=== PATIENT | female | born 1965 ===

== ENCOUNTER 2024-07-02 09:19 | Outpatient (CLI) | payer OTHER, SELFPAY ==
[2024-07-02 09:29] LABS: Appearance Urine Clear (Clear); Bilirubin Urine Negative (Negative); Blood Urine Trace-intact (Negative); Color Urine Yellow (Yellow); Glucose Urine Negative (Negative); Ketones Urine Negative (Negative); Leukocyte Esterase Urine Negative (Negative); Nitrite Urine Negative (Negative); Protein Urine Negative (Negative); Specific Gravity Urine 1.015 (1.000-1.030); Urobilinogen Urine 0.2 (0.2-1.0); pH Urine 6.5 (5.0-8.5)
[2024-07-02 09:36] LABS: Bacteria Urine Few; RBC Urine 0-2 (0-2); WBC Urine 0-2 (0-5)
[2024-07-03 17:21] LABS: HPV Source Cervical; HPV, High Risk by TMA Not Detected
== END 2024-07-02 09:20 | disposition home or self-care (01) ==
PROVIDERS: Visit Provider Obstetrics & Gynecology
DX: N81.2 Incomplete uterovaginal prolapse (principal); Z12.4 Encounter for screening for malignant neoplasm of cervix
CPT/HCPCS: 81001; 81003; 87086; 87624; 87625; 88141; 88142

== ENCOUNTER 2024-07-13 20:01 | Inpatient (IN) | payer OTHER, SELFPAY ==
[2024-07-13] VITALS (17 sets, daily range): BP systolic 99–143; BP diastolic 59–76; PULSE 60–77; RESP 14–16; TEMP 36.5–37.3; O2SAT 88–99; BMI 30.2
[2024-07-13] MEDS: LACTATED RINGERS 1000 ML 1,000 ML 100 ML IV (11:40)
[2024-07-13] MEDS: SODIUM CHLORIDE 0.9 % (FLUSH) 10 ML SYRINGE IVF (12:01)
[2024-07-13 12:11] LABS: Hemoglobin* 13.7 gm/dL (12.0-16.0)
[2024-07-13 12:21] LABS: Creatinine* 0.7 mg/dL (0.5-1.5); Est. Creatinine Clearance* 46.73; Estimated Glomerular Filt Rate 98 ml/min
--- NOTE | 2024-07-13 12:33 | W.PM.H&PU ---
History & Physical Update History & Physical Update H&P Reviewed and patient assessed: No changes noted
[2024-07-13] MEDS: CEFAZOLIN 2 GM INJ IVP (13:30)
[2024-07-13] MEDS: LACTATED RINGERS 500 ML 500 ML 125 ML IV ×2 (14:09→18:00)
[2024-07-13] MEDS: FLUORESCEIN 10% INJ 500 MG IVP (16:25)
--- NOTE | 2024-07-13 17:01 | P.GSOP_ITS ---
Operative Note Date of procedure: 07/13/24 Pre-op diagnosis: Uterovaginal prolapse Post-op diagnosis: Same Type of Procedure: Laparoscopic hysterectomy converted to abdominal hysterectomy Indications: I was asked for an intraoperative consultation by gynecology, please see Dr. Rodriguez's note for full risks and benefits discussion as well as indications for the procedure. Procedure Description: Dr. Rodriguez requested an intraoperative consultation by General surgery for extensive adhesions of the rectum to the uterus. When I came into the operating room the patient was in lithotomy position. The procedure had already been converted to an open total abdominal hysterectomy. The uterus was cir cumferentially dissected free and being retracted by Dr. Abreu. The posterior cul-de-sac was dissected through a layer of the uterine wall. The rectosigmoid colon was densely adherent to tissue just inferior to this dissection, along a lining of the uterus obliterating the posterior cul-de-sac space. I carefully dissected away the adhesions with cautery and sharp dissection when close to the colon. The underlying colon was then examined with no evidence of injury. This allowed for enough mobility of the uterus and cervix so that Dr. Nolasco could complete removal of the uterus and closure of the vaginal cuff. The lateral abdominal wall had been previously dissected and was examined closely. The left ureter was identified and away from the operative field. The abdominal wall dissection was partially into the mesentery of the colon. No evidence of mesenteric defects and perfusion to the sigmoid colon was excellent. I assisted with dissection of the left ovary away from the underlying ureter. Dr. Rodriguez then partially transected the ovary and passed off the back table to be sent for pathology. The abdomen was gently irrigated with warm saline. Hemostasis was excellent. I then left the operating room to loud Dr. Nolasco to continue with the procedure. Findings: Adhesions of rectus sigmoid colon to posterior uterus. Anesthesia: GETA Surgeon: Yancy Rene MD Estimated blood loss (mL): 0 Condition: stable Disposition: PACU
[2024-07-13] MEDS: CEFAZOLIN 1 GM inj IVP (17:29)
[2024-07-13] MEDS: VASOPRESSIN 20 UNIT/ML INJ INJECTION (18:00)
[2024-07-13] MEDS: 0.9 % SODIUM CHLORIDE 50 ml INJECTION (18:00)
--- NOTE | 2024-07-13 18:13 | CRLHL7_ITS ---
For Patients: As a result of the Century Cures Act, medical imaging exams and procedure reports are released immediately into your electronic medical record. You may view this report before your referring provider. If you have questions, please contact your health care provider. Indication: CHECKING FOR RIGHT URETER PATENCY POST Hysterectomy AND STENT REMOVAL ON RT SIDE Technique: IVP KUB study ISOVUE 370 81CC intravenous contrast 6 MIN POST, 10 MINUTE POST, 15 MIN POST, 20 MIN POST IMPRESSION: Normal opacification of the renal collecting systems bilaterally with normal opacification of the ureters and visualized bladder. Normal patency of the right ureter. Dictated by Joseph Solorio MD @ 07/16/2024 3:56:32 PM (Electronically Signed)
[2024-07-13] MEDS: KETOROLAC 15 MG/ML inj IVP (18:40)
--- NOTE | 2024-07-13 18:45 | W.PM.GYNPROC ---
Procedure Note Time Seen by Provider: 18:20 Date of procedure: 07/13/24 Will [facility] bill your pro fee for this procedure?: Yes Pre-op diagnosis: Absent efflux of the right ureteral jet Procedure: Diagnostic cystoscopy, right ureteral stent placement and removal Anesthesia: GETA Complications: None Surgeon: Renny Mora MD Estimated blood loss (mL): 0 IV fluids (mL): 0 Urine Output (mL): 0 Pathology: none sent Condition: stable Disposition: floor Findings: Absent right ureteral jet efflux Right ureteral stent placed to 20cm depth without difficulty Procedure Description: I was consulted intraoperatively by Dr. Edwina Rodriguez at 1724 requesting placement of right ureteral stent in the absence of spontaneous right ureteral efflux on diagnostic cystoscopy. Patient was undergoing a total abdominal hysterectomy, bilateral salpingectomy right oophorectomy in the setting of pelvic organ prolapse which had to be converted from a TVH to a DIONTE in the setting of intra-abdominal adhesive disease. Dr. Rodriguez noted transperitoneal and retroperitoneal identification of the right ureter was challenging intraoperatively. She completed a diagnostic cystoscopy after vaginal cuff closure, where the left ureteral orifice was noting to freely and spontaneously passed a robust of urine. Despite approximately 20 minutes of observation, the right ureter failed to demonstrate spontaneous efflux of urine. Cystoscopy did suggest there was peristalsis ongoing. When I arrived in the operating room, the patient was already in the synchronous position with Yellofin stirrups and prepped and draped in the usual fashion. She was under general anesthesia. Dr. Rodriguez was completing a diagnostic cystoscopy. The right ureteral orifice was visualized and inspected, where ureteral efflux was absent. A 0.35mm straight tip, flexible ureteral guidewire inserted through the operative channel of the cystoscope. This was easily introduced into the right ureteral orifice and advanced without difficulty until slight resistance was appreciated at the ureteropelvic junction. Flexible ureteral stent was guided gently over the wire and inserted to 20 cm in depth. Guide wire was removed. Ureteral stent was stabilized and cystoscope removed, right ureteral stent was held in place by photographer's assistant. The smith catheter was reinserted. The stent was then secured to the smith catheter and patient's leg. Intraabdominal assessment by Drs. Rodriguez and Josh ensued. Their impression was that the right ureter was free of the area of surgical dissection, the vaginal cuff and all pedicles. During their assessment, very minimal flow of urine was noted via the external right ureteral stent. After they were satisfied that the ureter was clear, the external right ureteral catheter was removed. Care was turned over to Dr. Rodriguez, who intends to proceed with IV Pyelogram further assess function of the right kidney and for ureteral injury. Please see her documentation for complete details. My component of the procedure was well tolerated and with no apparent complications.
--- NOTE | 2024-07-13 18:51 | P.GYNPRC_ITS ---
Procedure Note Date of procedure: 07/13/24 Will [facility] bill your pro fee for this procedure?: Yes Pre-op diagnosis: Stage IV uterovaginal prolapse Post-op diagnosis: Extensive pelvic adhesions with obliteration of posterior cul-de-sac and left ovarian fossa Otherwise as above Procedure: Total abdominal hysterectomy with partial left oophorectomy Extensive lysis of adhesions Cystoscopy with placement of right ureteral stent Anesthesia: GETA, spinal and other (TAP block) Complications: Extensive adhesions and obliteration of the cul-de-sac, requiring conversion from vaginal to abdominal hysterectomy and inability to complete suspension procedure of the vagina Surgeon: Edwina Rodriguez MD Intraoperative consult: Yancy Rene MD, general surgery, for assistance with lysis of adhesions Daisy Mora MD, for assistance with placement of right ureteral stent Mailing Machine Assistant: Janeth Moreno Estimated blood loss (mL): 200 IV fluids (mL): 2,200 Urine Output (mL): 700 (greater than 700 cc; this amount was measured prior to cystoscopy) Pathology: specimen obtained, sent to pathology (Uterus, portions of left ovary) Condition: stable Disposition: floor Findings: 1. On initial pelvic exam under anesthesia, uterine procidentia was noted. The uterus was of normal size. There are no palpable adnexal masses. 2. I was unable to perform the posterior colpotomy. Upon entry into the peritoneal cavity with anterior colpotomy, obliteration of the posterior cul-de-sac was noted. 3. Upon laparotomy, the right tube and ovary were surgically absent. The left ovary was densely scarred to the left pelvic sidewall and directly overlying the left ureter. The cul-de-sac was obliterated, with scarring of the sigmoid and rectum to the posterior uterus and the pelvic sidewalls. 4. Upon cystoscopy, the bladder was capacious but was intact. Vigorous left ureteral jets were noted. Right ureter did not demonstrate jets for the duration of the cystoscopy. 5. After placement of a right ureteral stent to 20 cm, the stent was palpable from the pelvic brim to the bladder, without any injury, kinking, or disruption noted on intraperitoneal exam. 6. Intravenous pyelogram, performed after the procedure but within operating room, did show right ureteral patency to the right bladder per my read; final read is pending. Procedure Description: Patient was taken to the operating room with IV running. She received IV cefazolin in preoperative prophylaxis. She was prepped and draped in the usual sterile fashion in the dorsal lithotomy position. Her legs were fully supported with Yellofin stirrups. A spinal anesthesia was initially used. Exam under anesthesia revealed the above-noted findings. Morrison catheter was placed. The cervix was grasped along its anterior and posterior lip with thyroid Saturnino clamps. The cervical vaginal junction was incised circumferentially with a scalpel. The initial attempt to complete the anterior colpotomy was unsuccessful. Posterior colpotomy was then attempted with scissors, but the peritoneal cavity was never entered, and further attempts seem to be delving into the body of the uterus itself. Thereafter, the anterior colpotomy was successfully completed without complication. Anterior peritoneal examination through this colpotomy revealed obliteration of the cul-de-sac. Decision was made to proceed with total abdominal hysterectomy. The posterior vaginal cuff was oversewn with a running stitch of 0 Vicryl for later identification. The abdomen was then cleansed and draped. A Pfannenstiel skin incision was made with a scalpel and carried down to the underlying layer of fascia with Bovie. The fascia was nicked in the midline with a scalpel and this incision was extended laterally with scissors. The fascia was dissected off the underlying rectus muscles sharply. The peritoneal cavity was entered bluntly. This opening was extended laterally with Bovie. The large Aime O retractor was inserted and tightened down, providing good visualization of the pelvis. The bowels were packed into the upper abdomen with a dampened laparotomy pack. The bilateral round ligaments were clamped, cut, and suture ligated with 0 Vicryl, and tagged for later identification. The cornua of the uterus was grasped bilaterally with clamps. The bladder reflection was dissected down to the level of the colpotomy bilaterally. On the patient's left side, the remnants of the scarred left broad ligament were dissected away from the pelvic sidewall. Some filmy adhesions of the sigmoid colon were dissected away from the pelvic sidewall, allowing greater mobilization. The retroperitoneum was opened in this fashion, and the infundibulopelvic ligament was skeletonized. The left ureter was identified beneath this pedicle. The infundibulopelvic ligament was then crossclamped, cut, and suture ligated. The proximal most portions of the ovary were still imbedded in dense scar tissue on the pelvic sidewall. Ultimately, the utero- ovarian ligament on this side was dissected away from scar tissue, crossclamped, cut and suture ligated. The remaining right broad ligament was opened posteriorly and the right uterine arteries were skeletonized. The right ovary was surgically absent. There was scar attaching the right cornua to the right pelvic sidewall that was crossclamped and suture ligated. The retroperitoneum was opened from the broad ligament. The right ureter was not initially visualized with the retroperitoneal dissection on this side. The adhesions of the sigmoid colon to the posterior uterus were painstakingly dissected. Dr. Yancy Rene was then called to the operating room for assistance, and she was able to complete this dissection to the level of the posterior cervix. Please refer to her operative note for full detail. This dissection did reveals some disruption of the posterior uterus and upper posterior vaginal fibromuscularis from previous attempts at the posterior colpotomy. The uterine arteries were coagulated and transected with the LigaSure Impact device. The anterior cervix was then grasped through the anterior colpotomy, and this was used as a guide to complete the colpotomy using the LigaSure Impact device. The uterus and cervix were then sent to pathology as a specimen. The vaginal edges were grasped with Allis clamps. The vaginal cuff was closed with a series of interrupted sutures of 0 Vicryl. Hemostasis was achieved with Bovie electrocautery. The disrupted posterior vaginal fibromuscularis was also oversewn with sutures of 0 Vicryl, attaching these to the posterior cuff. The left ureter was again identified. The left ovary was grasped above this. Portions of the ovary were removed in a piecemeal fashion, always identifying the ureter and painstakingly dissecting areas above this left ureter to sent to pathology. Some remaining ovarian tissue was left due to its proximity to the ureter and dense adhesions to this area. The pelvis was copiously irrigated and cleared of all clot and debris. Hemostasis was noted. The Aime O retractor was removed, as was the bowel pack. The laparotomy incision was covered with a sterile towel. Attention was turned to the cystoscopy. Patient had been given sodium fluorescein to aid in identification of ureteral jets. Patient's legs were placed back in lithotomy position. The catheter was removed. Cystoscope was advanced through the urethra into the bladder. Survey of the bladder revealed a capacious bladder with no injury to the mucosa. The left ureter was quite active, but the right ureter exhibited only 3 peristaltic movements during the course of more than 10 minutes without any ureteral jet. Given this, the decision was made to pass a right ureteral stent. Dr. Pierre was consulted for this portion of the procedure. Please refer to her operative note for full detail. In summary, ureteral stent was successfully passed to 20 cm depth. The laparotomy was again addressed. The Aime O retractor was replaced and bowel pack was again placed. Through the laparotomy, examination of the entire length of the ureteral stent was done, showing no kinking or injury to the ureter. Ureteral stents were removed and Morrison catheter was replaced. The pelvis was again copiously irrigated. Scotty hemostatic agent was placed on the vaginal cuff. Packing was removed, as was the retractor. The abdominal wall muscles were examined and Bovie used for hemostasis. The fascia was closed with this running suture of 0 Vicryl. Subcutaneous fat was irrigated and Bovie used on bleeding vessels. This skin was closed with a subcuticular stitch of 4- 0 Monocryl. Steri-Strips were applied above this, and then a dressing. Vaginal exam after the hysterectomy revealed excellent support of the vaginal cuff. The anterior vaginal wall was entirely normal in appearance, with normal rugae and vaginal sulci. A rectocele had not been noted prior to the procedure. There was negligible bulge at the end of the procedure, possibly related to the dissection in the rectovaginal septum. IVP was performed prior to patient leaving the operating room, with reassuring findings as described above.
--- NOTE | 2024-07-13 19:47 | W.ANESCHARGE ---
Anesthesia Charges Start Date/Time Anesthesia Start Date: 07/13/24 Anesthesia Start Time: 12:52 Stop Date/Time Anesthesia Stop Date: 07/13/24 Anesthesia Stop Time: 19:44 Coding CPT Codes CPT Codes: ANESTH SURG LOWER ABDOMEN - 21957 ([id number]) P2 - PATIENT W/MILD SYST DISEASE
[2024-07-13] MEDS: fentaNYL 100 MCG/2 ML inj 50 MCG IVP ×2 (19:55→20:10)
--- NOTE | 2024-07-13 19:57 | P.ANES_ITS ---
Anesthesia Charges Start Date/Time Anesthesia Start Date: 07/13/24 Anesthesia Start Time: 12:52 Stop Date/Time Anesthesia Stop Date: 07/13/24 Anesthesia Stop Time: 19:44 Coding CPT Codes CPT Codes: ANESTH SURG LOWER ABDOMEN - 44100 ([id number]) P2 - PATIENT W/MILD SYST DISEASE, QK - CERTIFIED TOWER CLIMBER 2-4 CNCRNT ANES PROC, QX - CONDITIONING COACH SVC W/ MD MED DIRECTION
--- NOTE | 2024-07-13 19:57 | W.ANESCHARGE ---
Anesthesia Charges Start Date/Time Anesthesia Start Date: 07/13/24 Anesthesia Start Time: 12:52 Stop Date/Time Anesthesia Stop Date: 07/13/24 Anesthesia Stop Time: 19:44 Coding CPT Codes CPT Codes: ANESTH SURG LOWER ABDOMEN - 07444 ([id number]) P2 - PATIENT W/MILD SYST DISEASE, QK - CULTURAL HISTORIAN 2-4 CNCRNT ANES PROC, QX - MARINE PIPEFITTER HELPER SVC W/ MD MED DIRECTION
--- NOTE | 2024-07-13 19:58 | P.NB_ITS ---
Nerve Block Nerve Block Time Seen by Provider: 19:15 Date Seen: 07/13/24 Type of block requested by surgeon for post-operative analgesia: TAP Side: bilateral Time out performed: Yes Verification of patient name: Yes Verification of date of : Yes Site marking: site marked Name of person performing procedure: Tarsha Lima Continuous monitoring Was continuous monitoring of O2 sat, B/P, environmental monitoring technician, recorded every 15 minutes?: Yes Procedure Checklist: sterile prep, needles and gloves Ultrasound guided. Images saved: Yes Medications given in 5ml increments after negative aspiration: Marcaine %: 0.25 mL: 30 Needle gauge: 20 and Exparel mL: 10 Needle gauge: 20 Patient tolerated procedure well: Yes Block Charges Block Charge (with Pro Fee): TAP Bilateral Use of Ultrasound Machine for Block: Yes- US Guidance/pain block
[2024-07-13] MEDS: MORPHINE 2 MG/ML inj IVP ×2 (20:48→21:45)
[2024-07-13] MEDS: ONDANSETRON 2 MG/ML inj 4 MG IVP (22:53)
[2024-07-14] VITALS (8 sets, daily range): BP systolic 105–147; BP diastolic 61–76; PULSE 73–95; RESP 14–19; TEMP 36.9–37.7; O2SAT 91–97
[2024-07-14] MEDS: KETOROLAC 30 MG/ML inj IVP ×4 (01:45→20:19)
[2024-07-14] MEDS: PROMETHAZINE 25 MG/ML INJ 12.5 MG IV (01:57)
[2024-07-14] MEDS: MORPHINE 2 MG/ML inj IVP (01:58)
[2024-07-14] MEDS: LACTATED RINGERS 1000 ML 1,000 ML 40 ML IV (02:02)
--- NOTE | 2024-07-14 06:29 | PC.NURSE ---
Arrived to the floor at 2030. A&O but drowsy. Upon initial assessment pt rating pain 6/10 and reporting significant discomfort. See eMAR for interventions. VSS on 1 L NC. Initially pt reporting increased pain after pain med administration. MD updated. See new orders. Pain managed overnight w/ IV morphine and scheduled toradol. Overnight pt reporting intermittent nausea. See eMAR for interventions. No emesis. Taking sips of water. Crackers and jello at bedside but pt not up for food at this time. Dressing to abdomen c/d/i. BS hypoactive. Minimal vaginal bleeding. Morrison in place and draining orange colored urine. Daughter at bedside overnight.
[2024-07-14 06:59] LABS: Hemoglobin* 12.2 gm/dL (12.0-16.0)
[2024-07-14 07:15] LABS: Creatinine* 0.7 mg/dL (0.5-1.5); Est. Creatinine Clearance* 46.73; Estimated Glomerular Filt Rate 98 ml/min
--- NOTE | 2024-07-14 08:17 | PM.GYNPNPO ---
VIDEO AND SOUND RECORDER - A/P Assessment and plan (1) S/P total abdominal hysterectomy: Problem details: With partial left oophorectomy, extensive lysis of adhesions, cystoscopy and placement and removal of right ureteral stent on 07/13/24 Status: Acute Assessment and Plan: Appropriate postoperative course. Discontinue IV fluids that she is tolerating orals quite well. Voiding trial today. Ambulation today. She has not had a bowel movement for few days. Colace twice daily is ordered, and I asked that she try milk of magnesia today. She has previously tried MiraLax and be cycle suppositories without success. If this fails, I will try a stimulant laxative. Plan We discussed postoperative restrictions and precautions at length. We discussed reasons to call the clinic or come to the ER after discharge. I anticipate that she will be discharged tomorrow. Postoperative Procedures: Procedures Operation Date: 07/13/24 12:45 Actual Procedure Side Surgeon p M/S-Total ABDOMINAL Hysterectomy, LEFT Oophorectomy, Cystoscopy, PLACEMENT AND REMOVAL OF RIGHT URETERAL STENT. Not Applicable Edwina Rodriguez MD Postoperative day: 1 Postoperative status: doing well Postoperative plan: routine post-op care Time Spent With Patient Time: Total time spent is greater than 50% in coordination of care (as documented) at patient's floor/unit and/or counseling patient: Time with patient: 25 - 35 minutes VIDEO AND SOUND RECORDER- PN:Subj Post-Op Subjective Date Seen: 07/14/24 Post Operative Details: Post-operative day number 1 s/p total abdominal hysterectomy with partial left oophorectomy, extensive lysis of adhesions, cystoscopy with placement of right ureteral stent. Original indication for surgery was uterine procidentia. She reports pain controlled on Toradol alone at this point; she has not taken narcotics recently. She just had a regular breakfast and tolerated it well. She has not yet passed flatus. She denies any chest pain or shortness of breath. She has not yet been walking. Morrison catheter still in place. VIDEO AND SOUND RECORDER-PN: Obj Exam Physical Exam: Vital signs: Temp Pulse Resp BP Pulse Ox O2 Del Method O2 Flow Rate 98.4 F 74 16 117/62 97 Nasal Cannula 1 07/14/24 02:00 07/14/24 03:00 07/14/24 03:00 07/14/24 03:00 07/14/24 03:00 07/14/24 03:00 07/14/24 03:00 Narrative: General: Pleasant, no acute distress Heart: Regular rate and rhythm, no murmur or gallop Lungs: Slight crackles in left lung base, otherwise Clear to auscultation bilaterally Abdomen: Normoactive bowel sounds in all 4 quadrants, Soft, nontender, no distension, rebound, or guarding. Dressing clean, dry, and intact Lower extremities: No edema or erythema Urinary Catheter Management: Urethral: Cath placed during this visit: no VIDEO AND SOUND RECORDER - PN: Obj Data Labs Labs: Laboratory Results - last 24 hr 07/13/24 07/14/24 12:00 06:24 Hgb 13.7 12.2 Creatinine 0.7 0.7 Estimated Creat Clear 46.73 46.73 Estimated GFR 98 98 Blood Type AB Positive Antibody Screen NEGATIVE
--- NOTE | 2024-07-14 09:44 | PM.GYNDS1 ---
Documented by User: Edwina Rodriguez MD 07/16/24 20:50 DS: Providers Provider Date Seen: 07/15/24 Date of admission: 07/13/24 20:01 Primary care physician: Tarsha Tang PA-C Admitting Clinician: Edwina Rodriguez MD Consults: Intraoperative consult from Dr. Yancy Rene and Dr. 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 Indication for surgery: Uterine procidentia. Intraoperative findings were notable for obliterated cul-de-sac, requiring conversion to total abdominal hysterectomy and inability to complete uterosacral suspension. Extensive pelvic adhesions, requiring extensive lysis of adhesions. Only partial removal of left ovary due to dense adhesions and proximity to left ureter. Cystoscopy did not initially demonstrate right ureteral jet, but ureteral stenting was accomplished without difficulty and no injury to the ureter was noted intraoperatively or on immediate postoperative IVP. Postoperative course has been uneventful. Vitals have been stable. She has remained afebrile. Today, on postoperative day [], she reports the pain is well controlled. She has been able to ambulate Without difficulty. She is tolerating regular diet. She is passing flatus. Morrison catheter has been removed, and she is voiding without difficulty. Time Spent with Patient Time attestation: Total time spent providing and/or coordinating discharge services: NUTRITION AIDES TEACHER - Exam Physical Exam: Vital signs: Temp Pulse Resp BP Pulse Ox O2 Del Method O2 Flow Rate 98.4 F 74 16 117/62 97 Nasal Cannula 1 07/14/24 02:00 07/14/24 03:00 07/14/24 03:00 07/14/24 03:00 07/14/24 03:00 07/14/24 03:00 07/14/24 03:00 NUTRITION AIDES TEACHER - DS: Data Data Completed and Pending Labs on day of discharge: Labs from last 24 hours 07/14/24 07/13/24 06:24 12:00 Hgb 12.2 13.7 Creatinine 0.7 0.7 Estimated Creat Clear 46.73 46.73 Estimated GFR 98 98 Blood Type AB Positive Antibody Screen NEGATIVE Procedures Procedures: Procedures Operation Date: 07/13/24 12:45 Actual Procedure Side Surgeon p M/S-Total ABDOMINAL Hysterectomy, LEFT Oophorectomy, Cystoscopy, PLACEMENT AND REMOVAL OF RIGHT URETERAL STENT. Not Applicable Edwina Rodriguez MD Discharge Plan Discharge Disposition: Home, Self-Care Date of Admission: 07/13/24 20:01 Attending Provider on Discharge: Geena Sanchez Consulting Providers: Yancy Rene Primary Care Provider: Tarsha Tang Condition: Stable Anticipated Discharge Date/Time: 07/15/24 09:40 Discharge Medications: New acetaminophen 500 mg Tablet 1,000 mg PO Q6H PRNQty: 100 0RF magnesium hydroxide [Milk of Magnesia] 400 mg/5 mL Suspension 30 ml PO Q4H PRN (Reason: Constipation) Qty: 250 0RF docusate sodium 100 mg Capsule 100 mg PO BID Qty: 100 0RF ibuprofen 600 mg Tablet 600 mg PO Q6H Qty: 30 0RF oxycodone 5 mg Tablet 5 mg PO Q4H PRN (Reason: Moderate Pain) Qty: 20 0RF sennosides [Senna Lax] 8.6 mg Tablet 8.6 - 17.2 mg PO BID PRN (Reason: constipation) Qty: 100 0RF Continued estradiol [Estrace] 0.01 % (0.1 mg/gram) cream 0.5 g vaginal 2XW Qty: 42.5 3RF Rx Instructions: Use nightly for 2 weeks, then twice weekly. May apply with finger. Discharge Orders: Discharge Order (Routine); Ordered 07/15/24 Ordered By: Geena Sanchez Patient Education: Acetaminophen (By mouth), Laxative, Stool Softeners (By mouth), Oxycodone, Rapid Release (By mouth), Magnesium Hydroxide (By mouth) (Dulcolax Milk of Magnesia, Milk Of..., Ibuprofen (By injection), Hysterectomy (DC) Additional Instructions: ACTIVITY RESTRICTIONS: Nothing vaginally for 6 weeks: no tampons/intercourse No driving while taking narcotic pain medication during the day. 1-2 weeks. Lifting restriction: Maximum of 20 pounds for 6 weeks. High impact or core exercises: 6 weeks. Submerge the incisions in water (bath/pool/mistry): 2 weeks. Off of work/school for a minimum of 6 weeks NO RESTRICTIONS for: Walking Going up/down stairs Showering Being the passenger in a motor vehicle SYMPTOMS TO REPORT TO YOUR DOCTOR: Bleeding that is red, like a moderate period Passing clots larger than the size of a golf ball Pain not relieved by prescribed medication Fever above 100.4 degrees Fahrenheit A foul vaginal odor Decrease in urination or painful, frequent urinating Chest pain Shortness of breath Tenderness or pain with redness and/swelling in the calf(s) of your leg Follow-up Appointments: 1. [facility] 2 [facility] for an incision check. 2. A 6 week postop visit to verify that the vaginal cuff is well-healed. For pain: Alternate ibuprofen (Advil) 600mg (3 tablets) with ES Tylenol 1,000mg (2 tablets) every 3 hours. Add oxycodone as needed up to 3 times a day for breakthrough pain. Activity Level: Other Activity Detail: No lifting greater than 20 lbs for 6 weeks Discharge Diet: Regular Follow Up Appointments: Edwina Rodriguez MD [Staff Physician] - 07/27/24 10:00 am (Another follow up on 08-23-24 at 1:45p at the [facility]. 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 Indication for surgery: Uterine procidentia. Intraoperative findings were notable for obliterated cul-de-sac, requiring conversion to total abdominal hysterectomy and inability to complete uterosacral suspension. Extensive pelvic adhesions, requiring extensive lysis of adhesions. Only partial removal of left ovary due to dense adhesions and proximity to left ureter. Cystoscopy did not initially demonstrate right ureteral jet, but ureteral stenting was accomplished without difficulty and no injury to the ureter was noted intraoperatively or on immediate postoperative IVP. Postoperative course has been uneventful. Vitals have been stable. She has remained afebrile. Today, on postoperative day 2, she reports the pain is well controlled. She has been able to ambulate Without difficulty. She is tolerating regular diet. She is passing flatus. Morrison catheter has been removed, and she is voiding without difficulty. Dr. Rodriguez recommended that she have a BM prior to discharge. She is taking colace 100mg BID and sennakot daily. I increased the sennakot to 2 tabs BID. She tried Miralax prior to her surgery which did not work to treat constipation so that was not ordered. She would like to be discharged home today. Time Spent with Patient Time spent: Less than 30 minutes NUTRITION AIDES TEACHER - Exam Physical Exam: Narrative: General: Pleasant, , well groomed woman in no acute distress. Vital signs: Included in her electronic medical record. Heart: Regular rate and rhythm without gallop, rub or murmur. Chest: Clear to auscultation bilaterally. Abdomen: Mild to moderate distension, nontender with normal bowel sounds throughout. No CVA or flank tenderness. Incision: Dressing removed. Clean, dry and intact sutures and skin adhesive gel. Extremities: No pain or edema. Discharge Plan Discharge Disposition: Home, Self-Care Date of Admission: 07/13/24 20:01 Attending Provider on Discharge: Geena Sanchez Consulting Providers: Yancy Rene Primary Care Provider: Tarsha Tang Condition: Stable Anticipated Discharge Date/Time: 07/15/24 09:40 Discharge Medications: New acetaminophen 500 mg Tablet 1,000 mg PO Q6H PRNQty: 100 0RF magnesium hydroxide [Milk of Magnesia] 400 mg/5 mL Suspension 30 ml PO Q4H PRN (Reason: Constipation) Qty: 250 0RF docusate sodium 100 mg Capsule 100 mg PO BID Qty: 100 0RF ibuprofen 600 mg Tablet 600 mg PO Q6H Qty: 30 0RF oxycodone 5 mg Tablet 5 mg PO Q4H PRN (Reason: Moderate Pain) Qty: 20 0RF sennosides [Senna Lax] 8.6 mg Tablet 8.6 - 17.2 mg PO BID PRN (Reason: constipation) Qty: 100 0RF Continued estradiol [Estrace] 0.01 % (0.1 mg/gram) cream 0.5 g vaginal 2XW Qty: 42.5 3RF Rx Instructions: Use nightly for 2 weeks, then twice weekly. May apply with finger. Discharge Orders: Discharge Order (Routine); Ordered 07/15/24 Ordered By: Geena Sanchez Patient Education: Acetaminophen (By mouth), Laxative, Stool Softeners (By mouth), Oxycodone, Rapid Release (By mouth), Magnesium Hydroxide (By mouth) (Dulcolax Milk of Magnesia, Milk Of..., Ibuprofen (By injection), Hysterectomy (DC) Additional Instructions: ACTIVITY RESTRICTIONS: Nothing vaginally for 6 weeks: no tampons/intercourse No driving while taking narcotic pain medication during the day. 1-2 weeks. Lifting restriction: Maximum of 20 pounds for 6 weeks. High impact or core exercises: 6 weeks. Submerge the incisions in water (bath/pool/mistry): 2 weeks. Off of work/school for a minimum of 6 weeks NO RESTRICTIONS for: Walking Going up/down stairs Showering Being the passenger in a motor vehicle SYMPTOMS TO REPORT TO YOUR DOCTOR: Bleeding that is red, like a moderate period Passing clots larger than the size of a golf ball Pain not relieved by prescribed medication Fever above 100.4 degrees Fahrenheit A foul vaginal odor Decrease in urination or painful, frequent urinating Chest pain Shortness of breath Tenderness or pain with redness and/swelling in the calf(s) of your leg Follow-up Appointments: 1. [facility] 2 weeks for an incision check. 2. A 6 week postop visit to verify that the vaginal cuff is well-healed. For pain: Alternate ibuprofen (Advil) 600mg (3 tablets) with ES Tylenol 1,000mg (2 tablets) every 3 hours. Add oxycodone as needed up to 3 times a day for breakthrough pain. Activity Level: Other Activity Detail: No lifting greater than 20 lbs for 6 weeks Discharge Diet: Regular Follow Up Appointments: Edwina Rodriguez MD [Staff Physician] - 07/27/24 10:00 am (Another follow up on 08-23-24 at 1:45p at the [facility]. ) Tarsha Tang PA-C [Primary Care Provider] - Forms: [employer] Info Instructions
[2024-07-14] MEDS: MAGNESIUM HYDROXIDE 30 ML ORAL.SUSP PO (10:55)
[2024-07-14] MEDS: DOCUSATE SODIUM 100 MG CAPSULE PO ×2 (10:55→20:18)
[2024-07-14] MEDS: SODIUM CHLORIDE 0.9 % (FLUSH) 10 ML SYRINGE IVF (13:55)
--- NOTE | 2024-07-14 14:02 | PC.NURSE ---
Voiding trial successfully completed before smith removal. Patient eating and drinking without nausea. Saline locked. Abdominal dressing is clean/dry and intact. Pt up to the bathroom independently and walking the halls. Patient noted to have a blister on her left buttock. Blister is still intact, Mepilex was placed. Rating her pain 2-4/10. Scheduled Toradol given per the eMAR.
--- NOTE | 2024-07-14 19:11 | PC.NURSE ---
End of shift [id number] - RN took over pt care at approximately 1500. Pt alert, oriented, cooperative. Up independently and observed to ambulate in halls. Reported pain as high as 2-3/10, reports this is tolerable. Tolerating RA and regular diet/fluids. Appears to be resting comfortably in bed with call light within reach.
[2024-07-14] MEDS: ENOXAPARIN 40 MG/0.4 ML INJ SUBCUT (20:20)
[2024-07-15] MEDS: SIMETHICONE 80 MG TAB.CHEW 160 MG PO (00:20)
[2024-07-15] MEDS: HYDROmorphone 0.5 mg/0.5 ml inj 0.2 MG IVP (00:20)
[2024-07-15] MEDS: KETOROLAC 30 MG/ML inj IVP (02:22)
[2024-07-15] MEDS: SENNOSIDES 1 TAB TABLET PO (02:24)
[2024-07-15 02:31] VITALS: BP 138/73; PULSE 74; TEMP 37.6; O2SAT 91
[2024-07-15 06:22] LABS: Basophils Percent Auto 0.3 % (0.0-3.0); Eosinophils Percent Auto 0.4 % (0.0-7.0); Hematocrit 34.2 % (33.0-51.0); Hemoglobin* 11.1 gm/dL (12.0-16.0); Immature Granulocytes Pct Auto 0.2 %; Lymphocytes Percent Auto 12.1 % (20-44); Mean Corpuscular HGB Conc 33 gm/dL (32-36); Mean Corpuscular Hemoglobin 28 pg (26-34); Mean Corpuscular Volume 87 fL (80-100); Monocytes Percent Auto 5.6 % (0.0-11.0); Neutrophils Percent Auto 81.4 % (42.0-72.0); Platelet Count* 239 K/uL (140-440); RDW Coefficient of Variation % 13.1 % (11.5-15.5); Red Blood Count 3.92 m/uL (4.00-5.20); White Blood Count* 11.31 K/uL (4.50-11.00)
[2024-07-15 06:24] LABS: Slide Review Reflex No
[2024-07-15] MEDS: ONDANSETRON 2 MG/ML inj 4 MG IVP (06:39)
[2024-07-15] MEDS: IBUPROFEN 600 MG TABLET PO ×2 (06:42→12:27)
--- NOTE | 2024-07-15 07:09 | PC.NURSE ---
Shift note ([id number]: Patient pleasant, alert and oriented. Independent with ambulation. Given scheduled Torodol, PRN Dilaudid and Simethicone for reports of?incision pain rated 3/10 and low abdominal pain?rated 6-9/10. Patient describes abdominal pain as gas pain. Passing some gas.?No BM. Encouraged pt to ambulate. Ambulated in hallway x2 this shift.?Dr Rodriguez called at approximately 0200 requesting update. New orders from MD to give scheduled Senna at that time. Abdomen soft and tender. Given PRN Zofran and crackers for nausea this am. ?
[2024-07-15 08:01] VITALS: BP 128/68; PULSE 88; RESP 19; TEMP 37; O2SAT 92
[2024-07-15 08:04] VITALS: PULSE 88; RESP 19
[2024-07-15] MEDS: SODIUM CHLORIDE 0.9 % (FLUSH) 10 ML SYRINGE IVF (09:30)
[2024-07-15] MEDS: ACETAMINOPHEN 500 MG TABLET 1000 MG PO (09:30)
[2024-07-15] MEDS: DOCUSATE SODIUM 100 MG CAPSULE PO (09:30)
[2024-07-15] MEDS: SENNOSIDES 1 TAB TABLET 2 TAB PO (09:57)
[2024-07-15 11:00] VITALS: BP 170/88; PULSE 74; RESP 18; TEMP 37.3; O2SAT 96
--- NOTE | 2024-07-15 14:20 | PC.NURSE ---
Discharge: patient pleasant and cooperative, A&O. VSS, afebrile. IV removed with tip intact. Discharge instructions provided, all questions answered. Discharged to home with spouse.
== END 2024-07-15 13:12 | disposition home or self-care (01) | DRG 743 ==
LOC: OR 20:31 → MEDSURG 07-14 09:41
PROVIDERS: Admitting Provider Obstetrics & Gynecology; PCP Physician Assistant Medical; Visit Provider Obstetrics & Gynecology
PROC: 0TJB8ZZ Inspection of Bladder, Via Natural or Artificial Opening Endoscopic (ICD-10-PCS; CPT 57260; principal; 2024-07-13 12:45)
DX: N95.0 Postmenopausal bleeding (principal); G89.18 Other acute postprocedural pain; N81.3 Complete uterovaginal prolapse
CPT/HCPCS: 00840; 36415; 64488; 74400; 76942; 82565; 85018; 85025; 86850; 86900; 86901; 88307; A4314; A9270; C1769; C2617; J0171; J0665; J0666; J0690; J1100; J1171; J1630; J1650; J1885; J2250; J2270; J2371; J2405; J2550; J2704; J3010; J3490; J7120